=== PATIENT | male | born 1980 | race Hispanic/Latino ===

== ENCOUNTER 2022-05-11 15:21 | Emergency (ER) | payer MEDICAID ==
[~2022-05-11] VITALS: Ht 170.2 cm; Wt 113.4 kg
[2022-05-11 16:52] LABS: BASOPHILS % (AUTO) 0.3 % (0.0-5.0); HEMATOCRIT 39.9 % (42-54); LYMPHOCYTES % (AUTO) 15.1 % (21.0-51.0); MEAN CORPUSCULAR HEMOGLOBIN 30.9 pg (27.0-33.0); MEAN CORPUSCULAR HGB CONC 33.3 g/dL (32.0-36.0); MEAN CORPUSCULAR VOLUME 92.6 fL (79-99); MONOCYTES % (AUTO) 5.5 % (3.0-13.0); NEUTROPHILS % (AUTO) 78.6 % (40.0-77.0); PLATELET COUNT (AUTO) 133 K/uL (130-400); RED BLOOD CELL COUNT(AUTO) 4.31 MIL/uL (4.50-6.20); RED CELL DISTRIBUTION WIDTH 13.2 % (11.0-15.5); WHITE BLOOD COUNT (AUTO) 7.8 K/uL (4.8-10.8)
[2022-05-11 17:06] LABS: CARBON DIOXIDE 21 mmol/L (21-32); CHLORIDE 106 mmol/L (101-111); CREATININE 1.2 mg/dL (0.5-1.5); GLOMERULAR FILTR. RATE CALC 71 mL/min (>60); GLUCOSE,RANDOM 101 mg/dL (70-105); POTASSIUM 3.5 mmol/L (3.5-5.1); SODIUM SERUM 139 mmol/L (136-145); UREA NITROGEN, BLOOD 12 mg/dL (7-18)
[2022-05-11 17:18] LABS: ALANINE AMINOTRANSFERASE 89 U/L (12-78); ALBUMIN 2.8 g/dL (3.5-5.0); ASPARTATE AMINOTRANSFERASE 73 U/L (10-37); TOTAL PROTEIN, SERUM 6.3 g/dL (6.0-8.3)
[2022-05-11 17:20] LABS: SALICYLATE < 2.8 mg/dL (2.8-20.0)
[2022-05-11 17:22] LABS: ACETAMINOPHEN 31 mcg/mL (10-29); ALCOHOL, BLOOD 206 mg/dL (0-10)
[2022-05-11] MEDS ORDERED: FAMOTIDINE 20MG VIAL IV ONE (18:30)
[2022-05-11] MEDS ORDERED: 0.9%NACL 1000ML 1,000 ML IV ONE (18:30)
[2022-05-11 21:41] LABS: ACETAMINOPHEN 9 mcg/mL (10-29); ALCOHOL, BLOOD 70 mg/dL (0-10)
[2022-05-12 08:15] VITALS: BP 132/78
== END 2022-05-12 08:24 ==
LOC: EDH 15:21
DX: R45.851 Suicidal ideations (principal); F10.20 Alcohol dependence, uncomplicated
CPT/HCPCS: 99283; 96374; 96361; 80053; 85025; 36415; G0481; J3490; J7030